=== PATIENT | female | born 1980 | race Caucasian/White ===

== ENCOUNTER 2025-08-26 15:22 | Emergency (ER) | payer BC, SELFPAY ==
[2025-08-26] VITALS (36 sets, daily range): BP systolic 118–154; BP diastolic 67–89; PULSE 61–92; RESP 11–23; TEMP 35.8; O2SAT 94–100; BMI 24.5
--- NOTE | 2025-08-26 15:43 | ED.ALLEREA ---
HPI - Allergic Reaction General Time Seen by Provider: 15:43 <Malena Back MD - Last Filed: 08/27/25 11:52> Date Seen: 08/26/25 <Malena Back MD - Last Filed: 08/27/25 11:52> Chief complaint: Allergic Reaction <Malena Back MD - Last Filed: 08/27/25 11:52> Stated complaint: Allergic reaction <Malena Back MD - Last Filed: 08/27/25 11:52> Time Seen by Provider: 08/26/25 15:42 <Malena Back MD - Last Filed: 08/27/25 11:52> Source: patient, family and RN notes reviewed <Malena Back MD - Last Filed: 08/27/25 11:52> Mode of arrival: ambulatory <Malena Back MD - Last Filed: 08/27/25 11:52> Limitations: no limitations <Malena Back MD - Last Filed: 08/27/25 11:52> History of Present Illness HPI narrative: Was asked to see this patient emergently by nursing staff. This 43-year-old female presented with eye swelling, facial swelling and hives, scratchy throat and vomiting. About 45 minutes ago she had a blueberry smoothie with protein supplement in it. She also had some spinach in it. 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 She did not give herself epinephrine, has not taken anything. She has not had reaction of this nature. She is not having abdominal pain but has had some vomiting, is dry heaving as I talked to her. Patient states her symptoms started with hives around her eyes come redness of her face. Starting about 45 minutes prior to arrival. She did try Benadryl at home but threw it up. Apple skin and shellfish have given her some symptoms with for but nothing this severe. She has had a gastric bypass surgery as well. 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 08/26/25 billion cell capsule bupropion HCl 100 mg tablet 200 mg PO BID 08/26/25 08/26/25 cyanocobalamin (vitamin B-12) 1,000 mcg PO DAILY 08/26/25 08/26/25 1,000 mcg capsule escitalopram oxalate 20 mg tablet 20 mg PO DAILY 08/26/25 08/26/25 levalbuterol tartrate 45 1 puff inhalation Q4H PRN 08/26/25 08/26/25 mcg/actuation aerosol inhaler (Xopenex HFA) propranolol 10 mg tablet 10 mg PO TID PRN 08/26/25 08/26/25 Previous Rx's ?Medication ?Instructions ?Recorded epinephrine 0.3 mg/0.3 mL 0.3 mg (0.3 mL) IM Q5-15M PRN #2 ea 08/26/25 injection, auto-injector (EpiPen) metoclopramide HCl 10 mg tablet 10 mg PO Q6H PRN nausea and 08/26/25 (Reglan) vomiting #10 tabs <Malena Back MD - Last Filed: 08/27/25 11:52> Allergies/adverse reactions: Allergies Allergy/AdvReac Type Severity Reaction Status Date / Time apple Allergy Verified 08/26/25 15:34 shellfish derived Allergy Hives Verified 08/26/25 15:34 <Malena Back MD - Last Filed: 08/27/25 11:52> Review of Systems Status of ROS Reports: 6 or more systems reviewed and unremarkable except as noted in History and below <Malena Back MD - Last Filed: 08/27/25 11:52> PFS PFS Social History: Social History Smoking Status: Never smoker How often do you have a drink containing alcohol: never AUDIT-C Alcohol total score: 0 Non-prescribed substance use: denies use <Malena Back MD - Last Filed: 08/27/25 11:52> Exam Const: Vital Signs, click to edit/add: Vital Signs - 24 hr 08/26/25 15:30 08/26/25 15:45 08/26/25 17:39 Temperature 96.5 F L Pulse Rate 71 Pulse Rate [Pulse Oximeter] 79 Respiratory Rate 20 12 Blood Pressure Blood Pressure [Ri ght Upper Arm] 154/87 H Pulse Oximetry 100 98 97 Oxygen Delivery Me thod Room Air 08/26/25 17:45 08/26/25 18:00 08/26/25 18:01 Temperature Pulse Rate 68 82 85 Pulse Rate [Pulse Oximeter] Respiratory Rate 18 11 L 15 Blood Pressure 142/84 H Blood Pressure [Ri ght Upper Arm] Pulse Oximetry 100 100 100 Oxygen Delivery Me thod 08/26/25 18:15 08/26/25 18:30 08/26/25 18:31 Temperature Pulse Rate 92 64 Pulse Rate [Pulse Oximeter] Respiratory Rate 20 23 22 Blood Pressure 148/80 H Blood Pressure [Ri ght Upper Arm] Pulse Oximetry 100 100 Oxygen Delivery Me thod 08/26/25 18:45 08/26/25 19:00 08/26/25 19:02 Temperature Pulse Rate 65 65 61 Pulse Rate [Pulse Oximeter] Respiratory Rate 15 17 17 Blood Pressure 147/88 H Blood Pressure [Ri ght Upper Arm] Pulse Oximetry 100 99 100 Oxygen Delivery Me thod 08/26/25 19:15 08/26/25 19:30 08/26/25 19:31 Temperature Pulse Rate 65 75 69 Pulse Rate [Pulse Oximeter] Respiratory Rate 12 13 15 Blood Pressure 139/89 Blood Pressure [Ri ght Upper Arm] Pulse Oximetry 100 100 100 Oxygen Delivery Me thod 08/26/25 19:45 08/26/25 19:48 08/26/25 19:49 Temperature Pulse Rate 90 86 83 Pulse Rate [Pulse Oximeter] Respiratory Rate 15 14 18 Blood Pressure 141/82 H Blood Pressure [Ri ght Upper Arm] Pulse Oximetry 100 100 100 Oxygen Delivery Me thod 08/26/25 20:00 08/26/25 20:02 08/26/25 20:15 Temperature Pulse Rate 91 84 86 Pulse Rate [Pulse Oximeter] Respiratory Rate 15 17 16 Blood Pressure 139/81 Blood Pressure [Ri ght Upper Arm] Pulse Oximetry 100 100 100 Oxygen Delivery Me thod 08/26/25 20:30 08/26/25 20:31 08/26/25 20:45 Temperature Pulse Rate 65 72 65 Pulse Rate [Pulse Oximeter] Respiratory Rate 18 16 14 Blood Pressure 142/79 H Blood Pressure [Ri ght Upper Arm] Pulse Oximetry 100 100 100 Oxygen Delivery Me thod 08/26/25 21:00 08/26/25 21:02 08/26/25 21:15 Temperature Pulse Rate 61 65 66 Pulse Rate [Pulse Oximeter] Respiratory Rate 15 19 17 Blood Pressure 145/82 H Blood Pressure [Ri ght Upper Arm] Pulse Oximetry 100 100 100 Oxygen Delivery Me thod 08/26/25 21:30 08/26/25 21:31 08/26/25 21:45 Temperature Pulse Rate 67 65 75 Pulse Rate [Pulse Oximeter] Respiratory Rate 18 14 13 Blood Pressure 143/78 H Blood Pressure [Ri ght Upper Arm] Pulse [facility]ximetry 98 [facility] 22:00 08/26/25 22:02 08/26/25 22:03 Temperature Pulse Rate 80 77 73 Pulse Rate [Pulse Oximeter] Respiratory Rate 14 14 16 Blood Pressure 121/70 Blood Pressure [Ri ght Upper Arm] Pulse Oximetry 98 97 94 [facility]26[facility] 22:15 08/26/25 22:30 08/26/25 22:31 Temperature Pulse Rate 77 69 72 Pulse Rate [Pulse Oximeter] Respiratory Rate 14 13 15 Blood Pressure 118/67 Blood Pressure [Ri ght Upper Arm] Pulse Oximetry 97 96 97 Oxygen Delivery Me od Patient has bilateral eyelid swelling nearly occluding her eyes, she is tearing. There is no lip swelling, no oral pharyngeal abnormalities at this time. Do not see any definite hives at this time. Her speech is still normal. She does have some dry heaving while I am with her. Neck is supple, no masses. Lungs are clear, no wheezing or crackles, normal auscultation, no tachypnea, no accessory muscle use. CV is regular, no murmur. Abdomen soft, nontender, nondistended, no rebound or guarding, organomegaly or masses. I do not see any your urticaria on her arms but face looks generally red, her eyelids are very definitely swollen. <Malena R Suchomel-Armstrong, MD - Last Filed: 08/27/25 11:52> Vital Signs, click to edit/add: Vital Signs - 24 hr 08/26/25 15:30 08/26/25 15:45 08/26/25 17:39 Temperature 96.5 F L Pulse Rate 71 Pulse Rate [Pulse Oximeter] 79 Respiratory Rate 20 12 Blood Pressure Blood Pressure [Ri ght Upper Arm] 154/87 H Pulse Oximetry 100 98 97 Oxygen Delivery Me thod Room Air 08/26/25 17:45 08/26/25 18:00 08/26/25 18:01 Temperature Pulse Rate 68 82 85 Pulse Rate [Pulse Oximeter] Respiratory Rate 18 11 L 15 Blood Pressure 142/84 H Blood Pressure [Ri ght Upper Arm] Pulse Oximetry 100 100 100 Oxygen Delivery Me thod 08/26/25 18:15 08/26/25 18:30 08/26/25 18:31 Temperature Pulse Rate 92 64 Pulse Rate [Pulse Oximeter] Respiratory Rate 20 23 22 Blood Pressure 148/80 H Blood Pressure [Ri ght Upper Arm] Pulse Oximetry 100 100 Oxygen Delivery Me thod 08/26/25 18:45 08/26/25 19:00 08/26/25 19:02 Temperature Pulse Rate 65 65 61 Pulse Rate [Pulse Oximeter] Respiratory Rate 15 17 17 Blood Pressure 147/88 H Blood Pressure [Ri ght Upper Arm] Pulse Oximetry 100 99 100 Oxygen Delivery Me thod 08/26/25 19:15 08/26/25 19:30 08/26/25 19:31 Temperature Pulse Rate 65 75 69 Pulse Rate [Pulse Oximeter] Respiratory Rate 12 13 15 Blood Pressure 139/89 Blood Pressure [Ri ght Upper Arm] Pulse Oximetry 100 100 100 Oxygen Delivery Me thod 08/26/25 19:45 08/26/25 19:48 08/26/25 19:49 Temperature Pulse Rate 90 86 83 Pulse Rate [Pulse Oximeter] Respiratory Rate 15 14 18 Blood Pressure 141/82 H Blood Pressure [Ri ght Upper Arm] Pulse Oximetry 100 100 100 Oxygen Delivery Me thod 08/26/25 20:00 08/26/25 20:02 08/26/25 20:15 Temperature Pulse Rate 91 84 86 Pulse Rate [Pulse Oximeter] Respiratory Rate 15 17 16 Blood Pressure 139/81 Blood Pressure [Ri ght Upper Arm] Pulse Oximetry 100 100 100 Oxygen Delivery Me thod 08/26/25 20:30 08/26/25 20:31 08/26/25 20:45 Temperature Pulse Rate 65 72 65 Pulse Rate [Pulse Oximeter] Respiratory Rate 18 16 14 Blood Pressure 142/79 H Blood Pressure [Ri ght Upper Arm] Pulse Oximetry 100 100 100 Oxygen Delivery Me thod 08/26/25 21:00 08/26/25 21:02 08/26/25 21:15 Temperature Pulse Rate 61 65 66 Pulse Rate [Pulse Oximeter] Respiratory Rate 15 19 17 Blood Pressure 145/82 H Blood Pressure [Ri ght Upper Arm] Pulse Oximetry 100 100 100 Oxygen Delivery Me thod 08/26/25 21:30 08/26/25 21:31 08/26/25 21:45 Temperature Pulse Rate 67 65 75 Pulse Rate [Pulse Oximeter] Respiratory Rate 18 14 13 Blood Pressure 143/78 H Blood Pressure [Ri ght Upper Arm] Pulse Oximetry 98 99 98 Oxygen Delivery Me thod 08/26/25 22:00 08/26/25 22:02 08/26/25 22:03 Temperature Pulse Rate 80 77 73 Pulse Rate [Pulse Oximeter] Respiratory Rate 14 14 16 Blood Pressure 121/70 Blood Pressure [Ri ght Upper Arm] Pulse Oximetry 98 97 94 Oxygen Delivery Me thod 08/26/25 22:15 08/26/25 22:30 08/26/25 22:31 Temperature Pulse Rate 77 69 72 Pulse Rate [Pulse Oximeter] Respiratory Rate 14 13 15 Blood Pressure 118/67 Blood Pressure [Ri ght Upper Arm] Pulse Oximetry 97 96 97 Oxygen Delivery Me thod <Leobardo Su MD - Last Filed: 08/26/25 22:27> Documenting provider has reviewed patient's vital signs: yes <Malena Back MD - Last Filed: 08/27/25 11:52> Course Course ED Course: Patient is getting an IV started, we will be placing her on pulse oximetry and cardiac monitoring for close observation of this patient. Will started L normal saline, she will be given 0.3 mg epinephrine IM, will give her IV Solu-Medrol, IV famotidine, 50 mg IV Benadryl and 10 mg oral Zyrtec when she can take this. She does not need emergent airway rescue at this time but she will be watched closely for this. Will draw tryptase for future reference differentiating anaphylaxis for follow-up allergy appointment for her. <Malena Back MD - Last Filed: 08/27/25 11:52> Reevaluation(s) Time of Reevaluation #1: 16:10 <Malena Back MD - Last Filed: 08/27/25 11:52> Reevaluation #1: Patient is feeling better, she is drinking water. Her eyes are still swollen probably about 50% improved, the eyelids are much less puffy. She states she is feeling better, feels the swelling in the eyes is continuing to resolve. She agrees her eyes feel much better. <Malena Back MD - Last Filed: 08/27/25 11:52> Time of Reevaluation #2: 17:28 <Malena Back MD - Last Filed: 08/27/25 11:52> Reevaluation #2: Patient still having some nausea, has not taking the Zyrtec at. Will do 4 mg IV Zofran. She overall is still feeling better, feels like her eyes are continuing to resolve, her arm pets were really itchy when she came in, there is no erythema in or hives now on inspection. The redness of her face has resolved. She is not feeling itchy anywhere else, do not see any hives on her arms or anterior chest. Her face and eyelid swelling looks much better. <Malena Back MD - Last Filed: 08/27/25 11:52> Time of Reevaluation #3: 19:18 <Malena Back MD - Last Filed: 08/27/25 11:52> Reevaluation #3: Patient is still having ongoing nausea, has had emesis. She has had a total of 8 mg Zofran. She also notes abdominal cramping. Her facial edema has improved, no rash, no respiratory symptoms. Did discuss with her that I am concerned that the abdominal symptoms might be ongoing allergic reaction issues. We are going to give a 2nd dose of epinephrine, will give her 25 mg IV Benadryl as it has been 4 hours. She did take the oral Zyrtec 10 mg but probably threw up about 40 minutes after taking it. We will see how she response to this, if she does not have good response, may need to consider an epi drip. She has never had any gastrointestinal symptoms with allergies before. Will also see if patient can tolerate some oral Vistaril. <Malena Back MD - Last Filed: 08/27/25 11:52> Additional Reevaluation(s): Patient signed out to Dr. Su about 9:00 p.m.-shift change. I recheck the patient. She was endorsing ongoing nausea. Repeat abdominal exam revealed no focal tenderness. No distension. No peritoneal findings. Although she has a history of Jayy-en-Y gastric bypass, at this point clinical presentation is most consistent with nausea and vomiting either due to allergic reaction or possibly med side effects. Have lower suspicion for things such as bowel obstruction, gastritis, perforation, abscess, cholecystitis. We decided to pursue a course of supportive treatment with nausea meds to see if she gets better rather than further workup with labs and advanced imaging. If she fails to improve we will do further workup. Recheck-receive Reglan 10 mg IV and now feeling better. Has tolerated both packages of crackers and drink juice. Feeling much better. She and her are comfortable discharging home. Will send in a prescription for Reglan that they can use if needed for recurrent nausea at home. However precautions for return to the ER with any significant nausea, abdominal pain, or other allergic reaction symptoms were reviewed. <Leobardo Su MD - Last Filed: 08/26/25 22:27> Vital Signs Vital signs: Initial Vital Signs Temperature 96.5 F L 08/26/25 15:30 Temperature Source Temporal Artery Scan 08/26/25 15:30 Pulse Rate 79 08/26/25 15:30 Pulse Rhythm Regular 08/26/25 15:30 Respiratory Rate 20 08/26/25 15:30 Blood Pressure 154/87 H 08/26/25 15:30 Blood Pressure Mean 109 H 08/26/25 15:30 Blood Pressure Position Sitting 08/26/25 15:30 Pulse Oximetry 100 08/26/25 15:30 Oxygen Delivery Method Room Air 08/26/25 15:30 Vital Signs Temperature 96.5 F L 08/26/25 15:30 Pulse Rate 79 08/26/25 15:30 Respiratory Rate 20 08/26/25 15:30 Blood Pressure 154/87 H 08/26/25 15:30 Pulse Oximetry 100 08/26/25 15:30 Oxygen Delivery Method Room Air 08/26/25 15:30 Temperature 96.5 F L 08/26/25 15:30 Pulse Rate 72 08/26/25 22:31 Respiratory Rate 15 08/26/25 22:31 Blood Pressure 118/67 08/26/25 22:31 Pulse Oximetry 97 08/26/25 22:31 Oxygen Delivery Method Room Air 08/26/25 15:30 <Malena Back MD - Last Filed: 08/27/25 11:52> Initial Vital Signs Temperature 96.5 F L 08/26/25 15:30 Temperature Source Temporal Artery Scan 08/26/25 15:30 Pulse Rate 79 08/26/25 15:30 Pulse Rhythm Regular 08/26/25 15:30 Respiratory Rate 20 08/26/25 15:30 Blood Pressure 154/87 H 08/26/25 15:30 Blood Pressure Mean 109 H 08/26/25 15:30 Blood Pressure Position Sitting 08/26/25 15:30 Pulse Oximetry 100 08/26/25 15:30 Oxygen Delivery Method Room Air 08/26/25 15:30 Vital Signs Temperature 96.5 F L 08/26/25 15:30 Pulse Rate 79 08/26/25 15:30 Respiratory Rate 20 08/26/25 15:30 Blood Pressure 154/87 H 08/26/25 15:30 Pulse Oximetry 100 08/26/25 15:30 Oxygen Delivery Method Room Air 08/26/25 15:30 Temperature 96.5 F L 08/26/25 15:30 Pulse Rate 72 08/26/25 22:31 Respiratory Rate 15 08/26/25 22:31 Blood Pressure 118/67 08/26/25 22:31 Pulse Oximetry 97 08/26/25 22:31 Oxygen Delivery Method Room Air 08/26/25 15:30 <Leobardo uS MD - Last Filed: 08/26/25 22:27> Medications Administered Medications: Discontinued Medications Generic Name Dose Route Start Last Admin Trade Name Freq PRN Reason Stop Dose Admin Cetirizine HCl 10 mg 08/26/25 15:43 08/26/25 17:34 Cetirizine Hcl 10 Mg Tablet PO 08/26/25 15:44 10 mg DAILY ONE Administration Diphenhydramine HCl 50 mg 08/26/25 15:42 08/26/25 15:51 Diphenhydramine 50 Mg/Ml Inj IVP 08/26/25 15:43 50 mg ONCE ONE Administration Diphenhydramine HCl 25 mg 08/26/25 19:19 08/26/25 19:45 Diphenhydramine 50 Mg/Ml Inj IVP 08/26/25 19:20 25 mg ONCE ONE Administration Epinephrine HCl 0.3 mg 08/26/25 15:42 08/26/25 15:46 Epinephrine 0.3 Mg Pen IM 08/26/25 15:43 0.3 mg ONCE ONE Administration Epinephrine HCl 0.3 mg 08/26/25 19:19 08/26/25 19:43 Epinephrine 0.3 Mg Pen IM 08/26/25 19:20 0.3 mg ONCE ONE Administration Famotidine 20 mg 08/26/25 15:42 08/26/25 15:52 Famotidine 10 Mg/Ml Inj IVP 08/26/25 15:43 20 mg ONCE ONE Administration Hydroxyzine Pamoate 25 mg 08/26/25 19:19 08/26/25 19:46 Hydroxyzine Pamoate 25 Mg Capsule PO 08/26/25 19:20 25 mg ONCE ONE Administration Sodium Chloride 1,000 mls @ 500 mls/hr 08/26/25 15:42 08/26/25 17:55 0.9 % Sodium Chloride 1000 Ml IV 08/26/25 17:41 Infused .Q2H NARINDER Infusion Methylprednisolone Sodium Succinate 125 mg 08/26/25 15:42 08/26/25 15:51 Methylprednisolone Sod Succ 62.5 Mg/Ml (125) IVP 08/26/25 15:43 125 mg ONCE ONE Administration Metoclopramide HCl 10 mg 08/26/25 20:58 08/26/25 21:06 Metoclopramide Hcl 5 Mg/Ml Inj IVP 08/26/25 20:59 10 mg ONCE ONE Administration Ondansetron HCl 4 mg 08/26/25 17:27 08/26/25 17:30 Ondansetron 2 Mg/Ml Inj IVP 08/26/25 17:28 4 mg ONCE ONE Administration Ondansetron HCl 4 mg 08/26/25 18:25 08/26/25 18:28 Ondansetron 2 Mg/Ml Inj IVP 08/26/25 18:26 4 mg ONCE ONE Administration <Malena Back MD - Last Filed: 08/27/25 11:52> Discontinued Medications Generic Name Dose Route Start Last Admin Trade Name Carlos PRN Reason Stop Dose Admin Cetirizine HCl 10 mg 08/26/25 15:43 08/26/25 17:34 Cetirizine Hcl 10 Mg Tablet PO 08/26/25 15:44 10 mg DAILY ONE Administration Diphenhydramine HCl 50 mg 08/26/25 15:42 08/26/25 15:51 Diphenhydramine 50 Mg/Ml Inj IVP 08/26/25 15:43 50 mg ONCE ONE Administration Diphenhydramine HCl 25 mg 08/26/25 19:19 08/26/25 19:45 Diphenhydramine 50 Mg/Ml Inj IVP 08/26/25 19:20 25 mg ONCE ONE Administration Epinephrine HCl 0.3 mg 08/26/25 15:42 08/26/25 15:46 Epinephrine 0.3 Mg Pen IM 08/26/25 15:43 0.3 mg ONCE ONE Administration Epinephrine HCl 0.3 mg 08/26/25 19:19 08/26/25 19:43 Epinephrine 0.3 Mg Pen IM 08/26/25 19:20 0.3 mg ONCE ONE Administration Famotidine 20 mg 08/26/25 15:42 08/26/25 15:52 Famotidine 10 Mg/Ml Inj IVP 08/26/25 15:43 20 mg ONCE ONE Administration Hydroxyzine Pamoate 25 mg 08/26/25 19:19 08/26/25 19:46 Hydroxyzine Pamoate 25 Mg Capsule PO 08/26/25 19:20 25 mg ONCE ONE Administration Sodium Chloride 1,000 mls @ 500 mls/hr 08/26/25 15:42 08/26/25 17:55 0.9 % Sodium Chloride 1000 Ml IV 08/26/25 17:41 Infused .Q2H NARINDER Infusion Methylprednisolone Sodium Succinate 125 mg 08/26/25 15:42 08/26/25 15:51 Methylprednisolone Sod Succ 62.5 Mg/Ml (125) IVP 08/26/25 15:43 125 mg ONCE ONE Administration Metoclopramide HCl 10 mg 08/26/25 20:58 08/26/25 21:06 Metoclopramide Hcl 5 Mg/Ml Inj IVP 08/26/25 20:59 10 mg ONCE ONE Administration Ondansetron HCl 4 mg 08/26/25 17:27 08/26/25 17:30 Ondansetron 2 Mg/Ml Inj IVP 08/26/25 17:28 4 mg ONCE ONE Administration Ondansetron HCl 4 mg 08/26/25 18:25 08/26/25 18:28 Ondansetron 2 Mg/Ml Inj IVP 08/26/25 18:26 4 mg ONCE ONE Administration <Leobardo Su MD - Last Filed: 08/26/25 22:27> Critical Care Time Critical Care Time Critical Care Time: Yes Attestation: The patient required my highest level preparedness to intervene emergently and I personally spent this critical care time directly and personally managing the patient. This critical care time included: Obtaining a history; Examining the patient; Pulse oximetry; Ordering and reviewing of studies; Arranging urgent treatment with development of a management plan; Evaluation of patients response to treatment; Frequent reassessment discussions with other providers. This critical care time was performed to assess and manage the high probability of imminent life-threatening deterioration that could result in multiorgan failure. It was exclusive of separate billable procedures and treating other patients and teaching time. <Malena Bakc MD - Last Filed: 08/27/25 11:52> Total Critical Care Time in Minutes: 30 <Malena Back MD - Last Filed: 08/27/25 11:52> Discharge Plan Discharge Clinical Impression: Allergic reaction Qualifiers: Encounter type: initial encounter Qualified Code(s): T78.40XA - Allergy, unspecified, initial encounter <Malena Back MD - Last Filed: 08/27/25 11:52> Patient Disposition: Home, Self-Care <Malena Back MD - Last Filed: 08/27/25 11:52> Condition: Stable <Malena Back MD - Last Filed: 08/27/25 11:52> Instructions: Anaphylaxis (ED), General Allergic Reaction (ED) <Malena Back MD - Last Filed: 08/27/25 11:52> Additional Instructions: Need to avoid any of the foods that you ingested prior to this allergic reaction. Your going to need to find an map mounter to see. We did do a tryptase level, I will let you know if it is elevated as this would signify anaphylaxis or a more severe allergic reaction. You should have an EpiPen on hand and should inject yourself with subsequent reactions of this nature. If you do ever need to take an EpiPen for a significant allergic reaction, it is recommended that you are evaluated in an ED setting, call 911 if needed. Remember to come back to the ER right away if you have trouble especially uncontrolled nausea vomiting, worsening abdominal pain, fever, new swelling in your face trouble breathing. <Malena Back MD - Last Filed: 08/27/25 11:52> Prescriptions: New metoclopramide HCl [Reglan] 10 mg tablet 10 mg PO Q6H PRN (Reason: nausea and vomiting) Qty: 10 0RF epinephrine [EpiPen] 0.3 mg/0.3 mL auto-injector 0.3 mg IM Q5-15M PRNQty: 2 0RF Rx Instructions: do not exceed 3 doses per episode No Action cyanocobalamin (vitamin B-12) 1,000 mcg capsule 1,000 mcg PO DAILY levalbuterol tartrate [Xopenex HFA] 45 mcg/actuation HFA aerosol inhaler 1 puff inhalation Q4H PRN bupropion HCl 100 mg tablet 200 mg PO BID propranolol 10 mg tablet 10 mg PO TID PRN escitalopram oxalate 20 mg tablet 20 mg PO DAILY Bifidobacterium infantis 1.5 billion cell capsule <Malena Back MD - Last Filed: 08/27/25 11:52> Follow Up/Referrals: Chema Booker PA-C [Primary Care Provider, Orthopedics] <Malena Back MD - Last Filed: 08/27/25 11:52> Stand Alone Forms: [facility] Info Instructions <Malena Back MD - Last Filed: 08/27/25 11:52>
[2025-08-26] MEDS: EPINEPHrine 0.3 MG PEN IM ×2 (15:46→19:43)
[2025-08-26] MEDS: METHYLPREDNISOLONE SOD SUCC 62.5 MG/ML (125) 125 MG IVP (15:51)
[2025-08-26] MEDS: FAMOTIDINE 10 MG/ML inj 20 MG IVP (15:52)
[2025-08-26] MEDS: ONDANSETRON 2 MG/ML inj 4 MG IVP ×2 (17:30→18:28)
[2025-08-26] MEDS: CETIRIZINE HCL 10 MG TABLET PO (17:34)
--- NOTE | 2025-08-26 17:34 | PC.NURSE ---
zyrtec given, pt did have zofran prior, nausea comes and goes
--- NOTE | 2025-08-26 18:28 | PC.NURSE ---
zofran repeated for nausea, pt has small watery emesis with dry heaves
--- NOTE | 2025-08-26 20:08 | PC.NURSE ---
pt still having nausea and emesis, md to room, meds ordered and administered, facial swelling to eyes slightly worse after having had improved, vss
[2025-08-26] MEDS: METOCLOPRAMIDE HCL 5 MG/ML INJ 10 MG IVP (21:06)
--- NOTE | 2025-08-26 21:54 | PC.NURSE ---
nausea improved at this time, vss
--- NOTE | 2025-08-26 22:50 | PC.NURSE ---
pt feeling better, no nausea since reglan administered, smiling, states, I feel so much better, to home now, discharge reviewed with patient and
== END 2025-08-26 22:50 | disposition home or self-care (01) ==
PROVIDERS: Emergency Provider Family Medicine; PCP Physician Assistant
DX: L50.0 Allergic urticaria (principal); T78.40XA Allergy, unspecified, initial encounter
CPT/HCPCS: 36415; 83520; 94761; 99285; 99291; A9270; J0169; J1200; J1308; J2405; J2765; J2919; J7030